=== PATIENT | female | born 1950 | race Caucasian/White ===

== ENCOUNTER 2017-09-06 18:03 | Emergency (ER) | payer OTHER ==
[~2017-09-06] VITALS: Ht 162.6 cm; Wt 65.8 kg
[~2017-09-06 18:03] MED LIST: ASPIRIN-LOW81 MG ORAL; GABAPENTIN300 MG ORAL; HYDROCHLOROTHIA25 MG ORAL; JANUMET 50-5001 EACH ORAL; LUMIGAN2.5 ML BOTH EYES; ZESTRIL10 MG ORAL
[2017-09-06] MEDS ORDERED: AMLODIPINE BESYL5 MG ORAL (18:14)
[2017-09-06 18:15] VITALS: BP 143/47
[2017-09-06 18:48] LABS: BASOPHILS % (AUTO) 1.7 % (0.0-2.0); HEMATOCRIT 40.4 % (37.0-47.0); HEMOGLOBIN 13.3 G/DL (12.0-16.0); LYMPHOCYTES % (AUTO) 17.3 % (20.0-45.0); MEAN CORPUSCULAR VOLUME 85 FL (80-99); MONOCYTES % (AUTO) 4.4 % (1.0-10.0); NEUTROPHILS % (AUTO) 75.7 % (45.0-75.0); PLATELET COUNT 248 K/UL (150-450); RED BLOOD COUNT 4.73 M/UL (4.20-5.40); RED CELL DISTRIBUTION WIDTH 14.5 % (11.6-14.8); WHITE BLOOD COUNT 11.2 K/UL (4.8-10.8)
--- NOTE | 2017-09-06 18:56 | Emergency Room Report ---
History of Present Illness General Chief Complaint: Generalized Weakness Source: Patient Present Illness HPI 67-year-old female has a history of diabetes and hypertension presenting with generalized weakness weight loss decreased oral intake for the last 2 months. Patient states that she only may be eats one for today but has very decreased appetite. She states that she lost 40 pounds in 2 months. Also has generalized weakness and dizziness especially upon standing or walking. She lives alone. No fever no chills no chest pain. No history of any malignancy. No vomiting or diarrhea. Allergies: Coded Allergies: NO KNOWN ALLERGIES (Unverified Allergy, Unknown, 01/03/15) Patient History Past Medical History: see triage record Past Surgical History: none Pertinent Family History: none Reviewed Nursing Documentation: PMH: Agreed; PSxH: Agreed Nursing Documentation-PMH Past Medical History: No History, Except For Hx Cardiac Problems: Yes - murmur Hx Hypertension: Yes Hx Diabetes: Yes Review of Systems All Other Systems: negative except mentioned in HPI Physical Exam Vital Signs Date Time Temp Pulse Resp B/P (MAP) Pulse Ox O2 Delivery O2 Flow Rate FiO2 09/06/17 18:07 97.8 101 18 119/67 99 Room Air 97.9 Sp02 EP Interpretation: reviewed, normal General Appearance: alert, GCS 15, non-toxic, mild distress Head: normocephalic, atraumatic Eyes: bilateral eye normal inspection, bilateral eye PERRL, bilateral eye EOMI ENT: normal ENT inspection, normal pharynx, normal voice, moist mucus membranes Neck: normal inspection, full range of motion, supple Respiratory: normal inspection, lungs clear, normal breath sounds, no respiratory distress, no retraction, no wheezing, speaking full sentences, chest symmetrical Cardiovascular #1: normal inspection, regular rate, rhythm, normal capillary refill Cardiovascular #2: 2+ radial (R), 2+ radial (L) Gastrointestinal: other Musculoskeletal: normal inspection, back normal, normal range of motion, non- tender Neurologic: normal inspection, alert, oriented x3, responsive, motor strength/ tone normal, sensory intact, normal gait, speech normal Psychiatric: normal inspection, judgement/insight normal, memory normal Skin: normal inspection, normal color, no rash, warm/dry, well hydrated, normal turgor Medical Decision Making Diagnostic Impression: Primary Impression: Weakness generalized Additional Impressions: Decreased oral intake Renal insufficiency ER Course 67-year-old female with generalized weakness weight loss decreased oral intake DDX: Dehydration, which like disruptions, infection, UTI, pneumonia, hypothyroidism Plan: Obtain labs, ua, EKG, CXR ER course: Patient has been monitored during ED stay, HD stable Patient was given IV fluids noted to have some mild renal insufficiency. Patient still feels very weak with low appetite will admit Disposition: Patient is to be xferred Due to insurance purposes, signed out to Dr. Styles was accepted patient for transfer patient is stable for transfer Please note that this Emergency Department Report was dictated using [employer] technology software, occasionally this can lead to erroneous entry secondary to interpretation by the dictation equipment. EKG Diagnostic Results EP Interpretation: Yes Rate: normal Rhythm: NSR ST Segments: Right bundle branch block, T-wave inversion V2 and V3 only ASA given to patient: No Rhythm Strip EP Interpretation: Yes Rate:85 Rhythm: NSR, no PVCs, no ectopy Chest X-ray CXR: Ordered: Yes 1 view Indication: Weakness EP interpretation: Yes Interpretation: No consolidation, no effusion, no PTX, no acute cardiopulmonary disease Impression: No acute disease Electronically signed by Asif Chavez MD Laboratory Tests Test 09/06/17 18:30 White Blood Count 11.2 K/UL (4.8-10.8) H Red Blood Count 4.73 M/UL (4.20-5.40) Hemoglobin 13.3 G/DL (12.0-16.0) Hematocrit 40.4 % (37.0-47.0) Mean Corpuscular Volume 85 FL (80-99) Mean Corpuscular Hemoglobin 28.2 PG (27.0-31.0) Mean Corpuscular Hemoglobin Concent 32.9 G/DL (32.0-36.0) Red Cell Distribution Width 14.5 % (11.6-14.8) Platelet Count 248 K/UL (150-450) Mean Platelet Volume 8.6 FL (6.5-10.1) Neutrophils (%) (Auto) 75.7 % (45.0-75.0) H Lymphocytes (%) (Auto) 17.3 % (20.0-45.0) L Monocytes (%) (Auto) 4.4 % (1.0-10.0) Eosinophils (%) (Auto) 1.0 % (0.0-3.0) Basophils (%) (Auto) 1.7 % (0.0-2.0) Sodium Level 138 MMOL/L (136-145) Potassium Level 4.4 MMOL/L (3.5-5.1) Chloride Level 104 MMOL/L (98-107) Carbon Dioxide Level 22 MMOL/L (21-32) Anion Gap 12 mmol/L (5-15) Blood Urea Nitrogen 25 mg/dL (7-18) H Creatinine 1.6 MG/DL (0.55-1.30) H Estimate Glomerular Filtration Rate 32.0 mL/min (>60) Glucose Level 95 MG/DL (74-106) Calcium Level 9.6 MG/DL (8.5-10.1) Total Bilirubin 0.3 MG/DL (0.2-1.0) Aspartate Amino Transferase (AST) 32 U/L (15-37) Alanine Aminotransferase (ALT) 52 U/L (12-78) Alkaline Phosphatase 113 U/L (46-116) Troponin I 0.000 ng/mL (0.000-0.056) Total Protein 8.0 G/DL (6.4-8.2) Albumin 3.4 G/DL (3.4-5.0) Globulin 4.6 g/dL Albumin/Globulin Ratio 0.7 (1.0-2.7) L Thyroid Stimulating Hormone (TSH) 0.532 uiU/mL (0.358-3.740) Last Vital Signs Date Time Temp Pulse Resp B/P (MAP) Pulse Ox O2 Delivery O2 Flow Rate FiO2 09/06/17 18:07 97.8 101 18 119/67 99 Room Air 97.9 Disposition: XFER [facility] HOSP Condition: Stable Referrals: [facility],REFERRING (PCP) Asif Chavez M.D. Sep 06, 2017 18:56
[2017-09-06 18:59] LABS: ANION GAP 12 mmol/L (5-15); BLOOD UREA NITROGEN 25 mg/dL (7-18); CALCIUM 9.6 MG/DL (8.5-10.1); CARBON DIOXIDE 22 MMOL/L (21-32); CHLORIDE 104 MMOL/L (98-107); CREATININE 1.6 MG/DL (0.55-1.30); POTASSIUM 4.4 MMOL/L (3.5-5.1); SODIUM 138 MMOL/L (136-145)
[2017-09-06 19:11] LABS: ALANINE AMINOTRANSFERASE 52 U/L (12-78); ALBUMIN 3.4 G/DL (3.4-5.0); ALBUMIN/GLOBULIN RATIO 0.7 (1.0-2.7); ALKALINE PHOSPHATASE 113 U/L (46-116); ASPARTATE AMINO TRANSFERASE 32 U/L (15-37); BILIRUBIN,TOTAL 0.3 MG/DL (0.2-1.0)
--- NOTE | 2017-09-06 19:54 | Diagnostic Imaging Report ---
EXAM: XR Chest, 1 View CLINICAL HISTORY: PAIN TECHNIQUE: Frontal view of the chest. COMPARISON: No relevant prior studies available. FINDINGS: Lungs: Unremarkable. No consolidation. Pleural space: Unremarkable. No pneumothorax. Heart: Unremarkable. No cardiomegaly. Mediastinum: Aortic calcification. Bones/joints: Unremarkable. IMPRESSION: No acute findings.
[2017-09-06 21:30] VITALS: BP 135/59
[2017-09-06 21:33] VITALS: BP 0/0
--- NOTE | 2017-09-09 14:26 | Cardiology Report ---
APPROVED REPORT EKG Measurement Heart [id number] Normal sinus rhythm Right bundle branch block Abnormal ECG
== END 2017-09-06 22:00 | disposition short-term general hospital (02) ==
LOC: EMR 18:44
DX: R53.1 Weakness (principal); N28.9 Disorder of kidney and ureter, unspecified; R63.4 Abnormal weight loss; Z68.24 Body mass index [BMI] 24.0-24.9, adult; E11.9 Type 2 diabetes mellitus without complications; I10 Essential (primary) hypertension
CPT/HCPCS: 36415; 71045; 80053; 82962; 84443; 84484; 85025; 93005; 96360; 99283